=== PATIENT | female | born 2000 | race Caucasian/White ===

== ENCOUNTER 2023-11-05 13:55 | Emergency (ER) | payer OTHER ==
--- NOTE | 2023-11-05 14:03 | ED ---
Lower Extremity Injury HPI - General Chief Complaint: Extremity Injury, Lower Stated Complaint: L foot injury Time Seen by Provider: 11/05/23 14:01 Source: patient, RN notes reviewed Mode of arrival: ambulatory Limitations: no limitations - History of Present Illness Initial Comments: This is a 22 year old female who presents to the emergency department for a left foot injury. She dropped a piece of metal on her left foot a couple of hours prior to arrival and states that it is becoming increasingly painful and swollen. The pain is the most prominent on the left great toe. She is still able to ambulate. - Related Data Allergies Allergy/AdvReac Type Severity Reaction Status Date / Time clindamycin Allergy Rash/Hives Verified 11/05/23 14:08 Review of Systems ROS Statement: Those systems with pertinent positive or pertinent negative responses have been documented in the HPI. ROS Other: All systems not noted in ROS Statement are negative. General Exam Limitations: no limitations General appearance: alert, in no apparent distress Head exam: Present: atraumatic, normocephalic, normal inspection Respiratory exam: Present: normal lung sounds bilaterally. Absent: respiratory distress, wheezes, rales, rhonchi, stridor Cardiovascular Exam: Present: regular rate, normal rhythm, normal heart sounds. Absent: systolic murmur, diastolic murmur, rubs, gallop, clicks Extremities exam: Present: other (Mild swelling and ecchymosis to the left great toe. Full range of motion. Minor tenderness.) Neurological exam: Present: alert, oriented X3, CN II-XII intact Psychiatric exam: Present: normal affect, normal mood Course Vital Signs 11/05/23 14:06 Temperature 98.4 F Pulse Rate 84 Respiratory 20 Rate Blood Pressure 113/73 O2 Sat by Pulse 99 Oximetry Medical Decision Making - Medical Decision Making This is a 22-year-old female who presents to the emergency department for a left great toe injury. Was pt. sent in by a medical professional or institution? @ -No Did you speak to anyone other than the patient for history? @ -No Did you review nursing and triage notes? @ -Yes, and I agree, it is accurate with regards to the patient's symptoms. Were old charts reviewed? @ -No Differential Diagnosis? @ -Differential Musculoskeletal: Muscular strain, contusion, ligament sprain, fracture, arthritis, septic arthritis, bursitis, cellulitis, muscle spasm, nerve compression, DVT, arterial occlusion, herpes zoster, electrolyte abnormality, tumor.... This is not meant to be in all inclusive list EKG interpreted by me (3pts min.)? @ -Not obtained X-rays interpreted by me (1pt min.)? @ -X-ray of the left foot obtained. My interpretation identifies no acute fractures. CT interpreted by me (1pt min.)? @ -Not obtained U/S interpreted by me (1pt. min.)? @ -Not obtained What testing was considered but not performed? (CT, X-rays, U/S, labs)? Why? @ -None What meds were considered but not given? Why? @ -None Did you discuss the management of the patient with other professionals? @ -No Did you reconcile home meds? @ -No Was smoking cessation discussed for >3mins.? @ -No Was critical care preformed (if so, how long)? @ -No Were there social determinants of health that impacted care today? How? (Homelessness, low income, unemployed, alcoholism, drug addiction, transportation, low edu. Level, literacy, decrease access to med. care, retirement, rehab)? @ -No Was there de-escalation of care discussed even if they declined? (Discuss DNR or withdrawal of care, Hospice)? @ -No What co-morbidities impacted this encounter? (DM, HTN, Smoking, COPD, CAD, Cancer, CVA, Hep., AIDS, mental health diagnosis, sleep apnea, morbid obesity)? @ -None Was patient admitted / discharged? @ -Discharged. X-ray of the left foot obtained revealing no acute fractures. Ibuprofen and Tylenol administered in the emergency department. Advised ice, elevation, and ibuprofen and Tylenol as needed for additional symptomatic management. Hard sole velcro shoe provided for further support and the patient was discharged home in stable condition. Undiagnosed new problem with uncertain prognosis? @ -None Drug Therapy requiring intensive monitoring for toxicity (Heparin, Nitro, Insulin, Cardizem)? @ -None Were any procedures done? @ -None Diagnosis/symptom? @ -Left foot contusion Acute, or Chronic, or Acute on Chronic? @ -Acute Uncomplicated (without systemic symptoms) or Complicated (systemic symptoms)? @ -Uncomplicated Side effects of treatment? @ -None Exacerbation, Progression, or Severe Exacerbation] @ -Not applicable Poses a threat to life or bodily function? @ -No Return precautions reviewed in depth, the patient is instructed to return to the emergency department with any new, worsening, or concerning symptoms. Patient verbalized understanding. This case was discussed in detail with the attending ED physician, Dr. Zepeda. Presentation, findings, and treatment plan discussed in detail as well. - Radiology Data Radiology results: report reviewed, image reviewed Disposition Clinical Impression: Contusion of toe of left foot Disposition: HOME SELF-CARE Instructions (If sedation given, give patient instructions): Crush Injury (ED) Additional Instructions: Return to the emergency department with any new, worsening, or concerning symptoms. Alternate with ibuprofen and Tylenol as needed for pain relief. Apply ice for 10 to 15 minutes every couple of hours. Follow up with your primary care provider in 1-2 days. Is patient prescribed a controlled substance at d/c from ED?: No Referrals: None,Stated [Primary Care Provider] - 1-2 days Time of Disposition: 13:59
[2023-11-05 14:58] VITALS: TEMP 98.4
--- NOTE | 2023-11-05 15:13 | XR ---
EXAMINATION TYPE: XR foot complete LT DATE OF EXAM: 11/05/2023 2:36 PM CLINICAL INDICATION:Female, 22 years old with history of Injury; COMPARISON: None TECHNIQUE: XR foot complete LT examined in the AP, oblique, and lateral projections. FINDINGS: No evidence of any acute osseous pathology. No evidence of soft tissue swelling. IMPRESSION: 1. No evidence of acute fracture. 2. Multifocal degeneration changes throughout the joints of the foot.
[2023-11-05] MEDS ORDERED: HYDROcodone/APAP 5-325MG 1 EACH TAB PO STA (15:58)
[2023-11-05] MEDS: IBUPROFEN 800 MG TAB PO STA (17:04)
[2023-11-05] MEDS: ACETAMINOPHEN TAB 500 MG TAB PO STA (17:05)
[2023-11-05 17:35] VITALS: BP 122/62; PULSE 78; RESP 18
== END 2023-11-05 17:17 | disposition home or self-care (01) ==
LOC: EC 13:55
DX: S90.32XA Contusion of left foot, initial encounter (principal); Z88.8 Allergy status to other drugs, medicaments and biological substances; X50.0XXA Overexertion from strenuous movement or load, initial encounter
CPT/HCPCS: 99283